=== PATIENT | male | born 1960 | race Hispanic/Latino ===

== ENCOUNTER 2023-11-17 10:54 | Emergency (ER) | payer MEDICARE ==
[~2023-11-17] VITALS: Ht 172.7 cm; Wt 72.0 kg
[2023-11-17 14:27] LABS: BASO% 0.7 % (0-3); EOS% 2.1 % (0-8); HEMATOCRIT 38.4 % (39.0-50.0); HEMOGLOBIN 13.6 g/dl (14.0-18.0); IMMATURE GRANULOCYTES 0.1 % (0.0-5.0); LYMPH% 29.6 % (15-41); MEAN CELL VOLUME 77.4 fL CALC (80.0-100.0); MEAN CORPUSCULAR HGB 27.4 pG CALC (26.0-32.0); MEAN CORPUSCULAR HGB CONC 35.4 g/dL CAL (32.0-36.0); MONO% 6.1 % (2-13); NEUT# 4.36 thou/uL (1.82-7.42); NEUT% 61.4 % (42-76); RED BLOOD COUNT 4.96 mill/uL (4.70-6.10); RED CELL DISTRI WIDTH 13.6 % (11.5-15.5)
[2023-11-17 14:46] LABS: ALBUMIN 4.3 g/dL (3.2-5.0); ALKALINE PHOSPHATASE 71 u/l (38-126); ANION GAP 11 (6-22 (CALC)); BILIRUBIN, TOTAL 0.7 mg/dL (0.2-1.3); BUN 9 mg/dL (8-23); BUN/CREATININE RATIO 8 (12-20 (CALC)); CARBON DIOXIDE 24 mmol/l (22-30); CHLORIDE 110 mmol/l (95-108); GFR FOR AFR.AMER. > 60 ML/MIN (>=60 (CALC)); GFR OTHER RACES > 60 ML/MIN (>=60 (CALC)); LIPASE 110 u/l (23-300); SGOT/AST 28 u/l (19-48); SODIUM 141 mmol/l (137-146)
[2023-11-17 15:02] LABS: URINE BILIRUBIN - DIPSTICK Negative (NEGATIVE); URINE BLOOD DIPSTICK Trace-lysed (NEGATIVE); URINE GLUCOSE - DIPSTICK Negative (NEGATIVE); URINE KETONE Negative (NEGATIVE); URINE LEUK ESTERASE Negative (NEGATIVE); URINE NITRITE - DIPSTICK Negative (Negative); URINE PH 7.5 (4.5-8.0); URINE PROTEIN - DIPSTICK Negative (NEG-TRACE); URINE SPECIFIC GRAVITY 1.025; URINE UROBILINOGEN - DIPSTICK 0.2 E.U./dL (0.2)
[2023-11-17 15:03] LABS: URINE COLOR Yellow
[2023-11-17] MEDS ORDERED: OMEPRAZOLE20 MG PO (18:03)
[2023-11-17 18:10] VITALS: BP 146/83
== END 2023-11-17 18:10 | disposition home or self-care (01) ==
LOC: ED 10:54
PROVIDERS: Emergency Medicine
DX: R10.9 Unspecified abdominal pain (principal); R14.0 Abdominal distension (gaseous)
CPT/HCPCS: Q9967